=== PATIENT | female | born 1955 | race Two or more races ===

== ENCOUNTER 2018-11-07 05:41 | Day surgery (SDC) | payer MEDICARE, OTHER ==
[~2018-11-07] VITALS: Ht 154.9 cm; Wt 103.5 kg
[2018-11-07] MEDS ORDERED: LIDOCAINE 2% 30 ML JELLY TP ONE (05:42)
[2018-11-07] MEDS ORDERED: LIDOCAINE 4% 50 ML SOLUTION TP ONE (05:42)
[2018-11-07] MEDS ORDERED: ALBUTEROL SULFATE 2.5 MG/0.5 ML NEB SOLUTION NEB ONE (05:42)
[2018-11-07] MEDS ORDERED: BENZOCAINE 20% 50 MCG/SPRAY 57 GM TP ONE (05:42)
[2018-11-07] MEDS ORDERED: SODIUM CHLORIDE 0.9% 1,000 ML IV ONE ×2 (05:55→07:00)
[2018-11-07] MEDS ORDERED: VITAD1000 PO (06:55)
[2018-11-07] MEDS ORDERED: OMEP20 PO (06:55)
[2018-11-07] MEDS ORDERED: MONT10TA21 PO (06:55)
[2018-11-07] MEDS ORDERED: BUDE10.2 IH (06:55)
[2018-11-07] MEDS ORDERED: LEVO25TA9 PO (06:55)
[2018-11-07] MEDS ORDERED: AMLO2.5T3 PO (06:55)
[2018-11-07] MEDS ORDERED: GABA-529 PO (06:55)
[2018-11-07] MEDS ORDERED: FentaNYL CITRATE-PF 100 MCG/2 ML VIAL ONE (07:55)
[2018-11-07] MEDS ORDERED: MIDAZOLAM HCL 2 MG/2 ML VIAL ONE (07:55)
[2018-11-07] MEDS ORDERED: MethylPREDNISolone SOD SUCC 125 MG/2 ML VIAL IVP ONE (08:15)
[2018-11-07] MEDS ORDERED: MethylPREDNISolone SOD SUCC 125 MG/2 ML VIAL ONE (08:36)
[2018-11-07] MEDS ORDERED: OXYGEN THERAPY IH SCH (20:00)
== END 2018-11-07 10:10 | disposition home or self-care (01) ==
LOC: SURGERY 05:41
PROVIDERS: ATTEND Internal Medicine Critical Care Medicine
DX: J38.4 Edema of larynx (principal); B37.0 Candidal stomatitis; J98.09 Other diseases of bronchus, not elsewhere classified; J98.8 Other specified respiratory disorders; I10 Essential (primary) hypertension; K44.9 Diaphragmatic hernia without obstruction or gangrene; E03.9 Hypothyroidism, unspecified; Z79.891 Long term (current) use of opiate analgesic; Z79.899 Other long term (current) drug therapy
CPT/HCPCS: 31623; 31624; 71045; 87015; 87070; 87205; 87206; 87220; 88108; 88312; J2250; J2930; J3010; J7030